=== PATIENT | female | born 1965 | race Caucasian/White ===

== ENCOUNTER 2016-08-06 11:30 | Emergency (ER) | payer OTHER ==
[2016-08-06 11:40] VITALS: BP 128/82
[2016-08-06] MEDS ORDERED: ORPHENADRINE CITRATE 30 MG/ML VIAL IM ONE (11:48)
[2016-08-06] MEDS ORDERED: ORPHENADRINE CITRATE 30 MG/ML VIAL ONE (11:50)
--- NOTE | 2016-08-06 11:56 | ERNOTE ---
Back Pain ER HPI Date of Service: 08/06/16 Presenting Symptoms: other - left back pain Time Seen by Provider: 08/06/16 11:45 Source: patient Exam Limitations: no limitations Immunizations: IMMUNIZATION HX History of Influenza Vaccine No Hx Pneumococcal Vaccination No Allergies/Adverse Reactions: Allergies codeine Allergy (Verified 08/06/16 11:40) naproxen [From Naprosyn] Allergy (Verified 08/06/16 11:40) Sulfa (Sulfonamide Antibiotics) Allergy (Verified 08/06/16 11:40) Home Medications: HOME MEDICATIONS Citalopram Hydrobromide [Celexa] 20 mg PO DAILY 08/06/16 [Last Taken Unknown] Estradiol 1 mg PO DAILY 08/06/16 [Last Taken Unknown] Orphenadrine Citrate [Norflex] 100 mg PO Q12H PRN #15 tablet.sa 08/06/16 [Last Taken Unknown] Narrative: Patient presents to the ED for left back pain. SHe relates some off and on pain here for the last couple of days but much worse this morning. She tells me she has a Hx of kidney stone and UTI but she soes not know if this is what the pain is from. No radicular Sx. No N/T/W. The agosto does radiate some to her left lateral side. No abdominal pain. No dysuria or hematuria noted. No N /T/W. or trouble with bowel or bladder control. No CP or SOB, no pleuritic Sx. Timing: Reports: constant Quality/Severity: Reports: moderate Location of pain: Reports: other - left flank Activities at Onset: Reports: none Recent Injury?: Reports: no Modifying Factors - (Improves): Reports: other - nothing Modifying Factors - (Worsens): Reports: nothing Associated Symptoms: Denies: fever/chills, nausea/vomiting, difficulty walking, lightheadedness, numbess/weakness in legs Prior Treament: Denies: recently seen Review of Systems - Review of Systems Constitutional: Absent: fever EYE: Present: no symptoms reported Respiratory: Absent: shortness of breath Cardiology: Absent: chest pain Gastrointestinal/Abdominal: Absent: abdominal pain Genitourinary: Absent: dysuria All Other Systems: All systems neg except as marked - Patient's Past Medical History Patient History - Medical: No pertinent hx Patient History - Cardiac/Respiratory: No pertinent hx Patient History - Cancer: No Hx of Cancer Patient History - Surgical Procedures: Appendectomy, Hysterectomy, Tubal Ligation, T & A Patient History - Other: None - Social History Living Situations: home Abuse History: No History of abuse Psych History: Hx of Depression Alcohol Use: none Drug Use: none - Immunizations Hx Pneumococcal Vaccination: No History of Influenza Vaccine: No Physical Exam - Physical Exam General Appearance: Present: alert, no apparent distress Eye Exam: Normal inspection: bilateral, PERRL: bilateral Ears, Nose, Throat: Present: normal ENT inspection Neck: Present: normal inspection Respiratory: Present: no respiratory distress, normal breath sounds, no accessory muscle use, lungs clear Cardiovascular/Chest: Present: regular rate, rhythm Gastrointestinal/Abdominal: Present: normal bowel sounds, nontender, nondistended, soft. Absent: tenderness Back Exam: Present: no vertebral tenderness, CVA tenderness (L), other - muscular tendenrss here as well. 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 Absent: motor weakness Skin Exam: Present: normal color, warm/dry. Absent: skin rash ED Progress - Results and Orders Patient's Lab Results:: I have reviewed the patient's lab results. - Vital Signs Patient's Vital Signs:: I have reviewed the patient's vital signs. Vital Signs: Vital Signs 08/06/16 11:35 Temperature 36.2 C L Pulse Rate 60 Respiratory 12 Rate Blood Pressure 128/82 O2 Sat by Pulse 100 Oximetry - CT/Ultrasound CT/Ultrasound Narrative: I reviewed CT report. no kidney stone, no other clear etiology of the pain. - Progress/Reassessment Chief Complaint: Back Pain Progress Note-Subjective: 08/06/16 14:07 Feeling improved on re-check. Clinically this is muscular pain. Nothign to suggest intra-thoracic etiology. No pyelo or kidney stone. Nothing to suggest infectious process ir other intra-abdominal etiology. No neuro deficits. No caudaequina syndrome or radicular Sx. She feels like goinghome. Will utilize muscle relaxants and close f/u, I discussed warning signs and reasons to return as well as the need for close f/u. Departure Clinical Impression: Back pain - Departure Disposition: Home self-care Condition: Stable Instructions: Back Pain, Adult Additional Instructions: Rest. FLuids. Medications as directed, no driving while taking. Return for increased pain, fever, numbness, tingling, weakness, loss of bowel or bladder control or if your condition worsens or changes in any way. Referrals: CHOCO SIMON [Primary Care Provider] - Prescriptions: Orphenadrine Citrate [Norflex] 100 mg PO Q12H PRN #15 tablet.sa PRN Reason: Pain
--- OUTSIDE RECORDS SUMMARY | 2016-08-06 12:06 | XMS REPORT | Continuity of Care Document ---
:1965 Author Organization [facility] ([facility]) Address [address] [place] [address] Phone [phone] Care Team Providers Name Role Phone Rachna Cisneros Primary Care Provider [phone] Source Comments This disclosure is being made pursuant to the Care Everywhere program, applicable federal and state laws, and may not contain all informaitonavailable regarding this patient.[facility] ([facility]) Active Allergies and Adverse Reactions Allergen Noted Date Severity Reactions Comments Codeine Nausea & Vomiting Naproxen Respiratory Distress,Urticaria (Hives) Sulfadoxine Urticaria (Hives) Current Medications Prescription Sig. Disp. Refills Start Date End Date Status aspirin 81 mg tablet take 81 mg by Active mouth daily. Cholecalciferol, Vitamin take 1 Tab by Active D3, (VITAMIN D) 2,000 unit mouth daily. Cap Ibuprofen 200 mg Cap take 200 mg by Active mouth as needed. Iaiuuhckhfzog-Wd-Phrg-Mine take 1 Tab by Active rals (MULTIPLE VITAMIN, mouth daily. WOMENS) Tab KRILL OIL PO Take by mouth. Active Active Problems Problem Noted Date Raynaud's disease 11/15/2008 Overview: +LEONILA speckled (1:80 in 2008) Vitamin D deficiency 11/15/2008 Renal lithiasis 11/15/2008 Overview: Recurrent. Last one 2002. (+ family history, father and brother). Resolved Problems Problem Noted Date Resolved Date Ruptured ovarian cyst 11/15/2008 11/15/2008 Overview: 2004 Hypopotassemia 12/02/2004 11/15/2008 Social History Tobacco Use Types Packs/Day Years Used Date Never Smoker Alcohol Use Drinks/Week oz/Week Comments No Last Filed Vital Signs Vital Sign Reading Time Taken Blood Pressure 114/74 04/07/2011 2:43 PM [employer] Pulse 65 04/07/2011 2:43 PM [employer]IN[employer] Temperature 36.4 C (97.5 F) 04/07/2011 2:43 PM [employer]IN[employer]ER Respiratory Rate 16 12/19/2003 1:44 PM CDT Height 1.613 m (5' 3.5") 04/07/2011 2:43 PM [employer]IN[employer] Weight 69.264 kg (152 lb 11.2 oz) 04/07/2011 2:43 PM [employer]IN[employer] Body Mass Index 26.62 04/07/2011 2:43 PM [employer]IN[employer] DISP[employer]ER Oxygen Saturation - - Plan of Care Health Maintenance Due Date Last Done Comments Hepatitis B Vaccine (1 of 3 - Primary Series) 1965 Tdap Vaccine 1977 Lipid Disorder Screening 1984 MMR Vaccine 1984 Td Vaccine 1984 Cervical Cancer Screening 1996 Mammogram 2006 Influenza Vaccine: Seasonal (#1) 11/01/2015 Results from Last 3 Months Not on file
[2016-08-06 12:17] LABS: Urine Appearance Clear; Urine Bilirubin Negative (NEGATIVE); Urine Color Yellow; Urine Ketone Negative (NEGATIVE); Urine Nitrite Negative (NEGATIVE); Urine Protein Negative (NEGATIVE); Urine Specific Gravity 1.005 SP.GR. (1.005-1.010); Urine Urobilinogen Normal (NORMAL); Urine pH 6.5 pH (5.0-7.0)
[2016-08-06 12:18] LABS: Urine Bacteria None Seen; Urine Blood 10 /ul (NEGATIVE); Urine RBC 0-5 /hpf (0-5); Urine WBC None Seen /hpf (0-5)
== END 2016-08-06 14:18 | disposition home or self-care (01) ==
LOC: ER 11:30
DX: M54.9 Dorsalgia, unspecified (principal)